=== PATIENT | male | born 1985 | race Caucasian/White ===

== ENCOUNTER 2020-03-07 18:02 | Emergency (ER) | payer OTHER ==
[~2020-03-07] VITALS: Ht 185.4 cm; Wt 99.8 kg
[2020-03-07] MEDS ORDERED: Roxicodone5 MG PO (22:09)
== END 2020-03-07 23:30 | disposition home or self-care (01) ==
LOC: ER 18:02
DX: S82.851A Displaced trimalleolar fracture of right lower leg, initial encounter for closed fracture (principal); F17.200 Nicotine dependence, unspecified, uncomplicated; W01.0XXA Fall on same level from slipping, tripping and stumbling without subsequent striking against object, initial encounter
CPT/HCPCS: 27818; 73600; 73610; 96374-59; 96375-59; 96376-59; 99152; 99283-25; A9270; J1170; J1885; J2250; J3010